=== PATIENT | male | born 1950 | race African-American/Black ===

== ENCOUNTER → 2018-05-09 | Outpatient (CLI) | payer OTHER, MEDICARE ==
[~2018-05-09] VITALS: Ht 188 cm; Wt 156.5 kg
[~2018-05-09] MED LIST: ALLOPURINOL 30300 M1 PO; ASPIR 8181 MG PO; CELECOXIB400 MG PO; CENTRUM SILVER1 EAC2 PO; COUMADIN 5 MG TA5 M1 PO; FLONASE 0.05%50 MCG NASAL; HYTRIN 2MG CAPSU2 M1 PO; LASIX 40 MG TAB40 M2 PO; LIPITOR10 MG PO; MATZIM PO; TYLENOL325 MG PO; VALSARTAN-HCTZ1 EAC4 PO
--- NOTE | ~2018-05-09 | P ---
[facility] [place] [address] PROCEDURE REPORT Name: BENSONHAMIDA Room #: REG [facility] Heena#: [id number] Admission: 05/09/18 Attend Phys: Johnnie Starkey Discharge: Date of : 50 Report #: [id number] THIS REPORT FOR: //name// CC: Johnnie Zambrano MD DATE OF SERVICE: 05/09/2018 PROCEDURE PERFORMED: Colonoscopy with polypectomies. HISTORY OF PRESENT ILLNESS: The patient is a 67-year-old male with a history of colon polyps, last colonoscopy 6 years ago. He denies any symptoms at this time. He is here for a routine followup. No family history of colon cancer. The patient takes Coumadin and has been held for the last 5 days. His INR today is 1.1. DESCRIPTION OF PROCEDURE: The risks and benefits of the procedure were explained to the patient those risks including, but not limited to bleeding, perforation and the risk of sedation. He understood these risks and gave informed consent. Sedation was given using propofol per anesthesia. Next, a digital rectal exam was initially performed, which was normal. Next, using a standard Olympus colonoscope, the scope was placed in the patient's anus and advanced under direct vision to the cecum. The overall prep was good. The cecum and ileocecal valve were normal in appearance. In the ascending colon, there was a 6 mm sessile polyp. This was removed by snare cautery, otherwise normal. The transverse and descending colon were normal. Multiple diverticula were noted in the sigmoid colon. A 3 mm sessile polyp was also noted in the sigmoid colon. This was removed with cold forceps. The rectal mucosa was normal. On retroflexion, small nonbleeding internal hemorrhoids were noted. The scope was then withdrawn and the procedure terminated. The patient tolerated the procedure well. IMPRESSION: 1. Two colonic polyps. 2. Sigmoid diverticulosis. 3. Internal hemorrhoids. 4. Otherwise, normal colonoscopy. RECOMMENDATIONS: 1. Await biopsy results. 2. Repeat colonoscopy in 5 years. [facility] [address] [place] [address] PROCEDURE REPORT Name: HAMIDA KNOWLES Room #: REG ONEIDA Naik#: [id number] Admission: 05/09/18 Attend Phys: Johnnie Starkey Discharge: Date of : 50 Report #: [id number] Thank you for allowing me to participate in his care. <ELECTRONICALLY SIGNED> By: Johnnie Ching MD 05/11/18 0832 [id number] [id number] Johnnie Ching MD /nt
--- NOTE | ~2018-05-09 | PATH ---
[facility] [address] [place] [address] PATHOLOGY RPT PROCEDURE Name: JOSE CLAYTON Room #: REG ONEIDA Alfaro.#: [id number] Admission: 05/09/18 Date of : 50 Discharge: Report #: [id number] Path Case #: [id number] [facility] Accession Number: [id number] . 01 Material submitted: . PART A: POLYP AT ASCENDING COLON PART B: POLYP AT SIGMOID COLON . 01 Clinical history: . Pre-OP DX: Hx polyps Post-OP DX: Colon polyps . 02 Diagnosis: A. Colonic mucosa "polyp at ascending colon": - Fragments of tubular adenoma. - There is no evidence of high-grade dysplasia or malignancy. . B. Colonic mucosa "polyp at sigmoid colon": - Hyperplastic polyp. - There is no evidence of adenomatous change, high-grade dysplasia or malignancy. (SHA:pit 05/10/2018) QTP/05/10/2018 . 02 Electronically signed: . Osman Mccray MD, Pathologist NPI- [id number] . 01 Gross description: . A. Received in formalin labeled "Jose Clayton, polyp at ascending colon," are 3 segments of rodas soft tissue measuring 1.1 x 0.5 x 0.4 cm in aggregate dimensions and ranging from 0.3 to 0.5 cm in maximum dimension. The specimen is submitted entirely in cassette A1. . B. Received in formalin labeled "Jose Clayton, polyp at sigmoid colon," is a single segment of rodas soft tissue measuring 0.3 cm in maximum dimension. The specimen is entirely submitted in cassette B1. (TSD; 05/09/2018) TOB/TOB . 02 Pathologist provided ICD-10: D12.2, K63.5 . 02 CPT . 496087, [id number] Specimen Comment: A courtesy copy of this report has been sent to Specimen Comment: [phone], [place] [address] PATHOLOGY RPT PROCEDURE Name: JOSE CLAYTON Room #: REG [facility] Heena#: [id number] Admission: 05/09/18 Date of : 50 Discharge: Report #: [id number] Path Case #: [id number] Specimen Comment: Report sent to / DR NAIR Specimen Comment: A duplicate report has been generated due to demographic updates. Performed at: [address] [facility], [place], [place] [id number] MD Kevin Handley MD Phone: [phone] Performed at: [address] [id number] MD Radha Mayes MD Phone: [phone]
[2018-05-09 08:13] LABS: INR 1.1
== END | disposition home or self-care (01) ==
LOC: GI 07:21
PROVIDERS: Specialist
DX: Z12.11 Encounter for screening for malignant neoplasm of colon (principal); Z86.010 Personal history of colon polyps; D12.2 Benign neoplasm of ascending colon; K63.5 Polyp of colon; K57.30 Diverticulosis of large intestine without perforation or abscess without bleeding; K64.8 Other hemorrhoids; I10 Essential (primary) hypertension; E78.5 Hyperlipidemia, unspecified; G47.33 Obstructive sleep apnea (adult) (pediatric); M10.9 Gout, unspecified; M19.90 Unspecified osteoarthritis, unspecified site; Z96.653 Presence of artificial knee joint, bilateral; Z98.890 Other specified postprocedural states; Z79.82 Long term (current) use of aspirin; Z79.899 Other long term (current) drug therapy; Z79.01 Long term (current) use of anticoagulants